=== PATIENT | male | born 1950 | race Caucasian/White ===

== ENCOUNTER → 2018-05-24 09:39 | Outpatient (CLI) | payer MEDICARE, SELFPAY ==
[2018-05-24 11:00] LABS: BUN Creatinine Ratio 21.1 (6-22); Blood Urea Nitrogen 19 mg/dL (9-20); Calcium 9.4 mg/dL (8.4-10.2); Carbon Dioxide 34 mmol/L (22-32); Chloride 102 mmol/L (98-107); Cholesterol 173 mg/dL (140-199); Estimated Glomerular Filt Rate > 60.0 mL/min (>60); Glucose 101 mg/dL (80-110); HDL Cholesterol 49 mg/dL (40-60); HEMOLYSIS < 15 (0-50); LDL Cholesterol Calculated 111 mg/dL (<100); Potassium 4.4 mmol/L (3.4-5.1); Sodium 145 mmol/L (137-145); Triglycerides 64 mg/dL (35-150)
== END ==
PROVIDERS: Visit Provider Physician Assistant
DX: I10 Essential (primary) hypertension (principal)
CPT/HCPCS: 36415; 80048; 80061

== ENCOUNTER → 2018-11-03 09:49 | Outpatient (CLI) | payer MEDICARE, SELFPAY ==
[2018-11-03 11:23] LABS: Vitamin D 25 Hydroxy (D3) 64.4 ng/mL (30.0-100.0)
[2018-11-03 11:36] LABS: Prostate Specific Antigen Scrn 1.53 ng/mL (0.1-4.0)
== END ==
PROVIDERS: PCP Student in an Organized Health Care Education/Training Program; Visit Provider Student in an Organized Health Care Education/Training Program
DX: Z12.5 Encounter for screening for malignant neoplasm of prostate (principal); E55.9 Vitamin D deficiency, unspecified
CPT/HCPCS: 36415; 82306; G0103

== ENCOUNTER 2018-11-24 09:00 | Outpatient (RCR) | payer MEDICARE, SELFPAY ==
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
--- NOTE | 2018-11-03 14:15 | PT.OPPOC ---
Current Diagnoses Unspecified rotator cuff tear or rupture of unspecified shoulder, not specified as traumatic (11/03/18) Provider Visit Care Team Role Provider Type Dewey Padron MD Attending Provider Physician Family Provider Primary Care Provider Specialty: Internal Medicine Address: [address] [place] [address], [id number] Email: Plan Of Care PT-OP-T Assessment and Plan Start: 11/03/18 11:57 Freq: Status: Active Protocol: Document 11/03/18 11:58 EA (Rec: 11/03/18 12:00 EA [id number]) Physical Therapy Assessment Rehab Potential Rehabilitation Potential Good Evaluation Complexity Number of Personal Factors/Comorbidities 1-2 Number of Body Systems Impaired 1-2 Clinical Presentation at Evaluation Stable Impairments Impairments Activity Tolerance Functional Activities Pain Soft Tissue Mobility Strength Goals Four Impairment No HEP in place Social Work Administrator Goal (LTG) Patient will comply and perform HEP and shoulder fitness exercises safe. LTG Duration 5 wks Three Impairment Impaired sleep Jail Goal (LTG) Patient will sleep more than 6 hours without bothering from shoulder pain LTG Duration 4 wks Two Impairment Impaired shoulder strength Social Work Administrator Goal (LTG) Patient increase shoulder ABD/ Flexors, ER by 1/2 grade to improve shoulder functional mobility LTG Duration 4 wks One Impairment quick Dash shoulder functional scale score of 11 Jail Goal (LTG) Patient will have quickDash score of < 10 LTG Duration 4 wks Assessment Summary Assessment Pleasant 68 y/o M patient a referring diagnosis of R RTC tear. Today patient demonstrates shoulder weakness with instability in all shoulder overhead movement. Special tests reveals consistent with MRI results such as positive with Empty Can's, Hawkin's, sensitive with Lift off, speeds, and Clunk tests. OI reveals prominent right clavicle and sup scap angle with no atrophy noted and no substitution noted in all overhead movement . Palpation reveals tender over greater tuberosity but no signs of acute inflammation. Due to above mentioned deficits, patient unable to perform shoulder fitness exercises, end range overhead activities and also patient is deprived with sleeping due to pain. In my professional opinion, patient would greatly benefit with skilled PT to improve his shoulder strength, decrease pain and learn safe fitness exercises. Physical Therapy Plan Frequency and Duration Frequency of Treatment 2x/Week Duration of Treatment 8 wks Therapeutic Interventions Therapeutic Interventions Home Exercise Program Joint Mobilizations Manual Therapy Patient/Caregiver Education Self-Care/Home Management Therapeutic Exercises Modalities Cold Pack/Ice Massage Electric Stimulation Hot Packs Next Visit Focus/Plan Next Note Type Treatment Note Next Visit Plan HEP images, strengthening exercises. Please Sign and Return: I have reviewed this Plan of Care and certify that the skilled therapy services above are required to meet the patient?s needs. Physician Signature Date Printed Name and Credentials Clinical Instructor Signature Printed Name and Credentials
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
== END 2018-11-25 12:10 ==
LOC: PHYS 09:00
PROVIDERS: Family Provider Student in an Organized Health Care Education/Training Program; PCP Student in an Organized Health Care Education/Training Program; Visit Provider Student in an Organized Health Care Education/Training Program
DX: M75.100 Unspecified rotator cuff tear or rupture of unspecified shoulder, not specified as traumatic (principal)
CPT/HCPCS: 97110; 97161; 97535

== ENCOUNTER 2019-02-06 08:56 | Day surgery (SDC) | payer MEDICARE, SELFPAY ==
[2019-02-06] VITALS (7 sets, daily range): BP systolic 115–148; BP diastolic 73–92; PULSE 53–76; RESP 15–22; TEMP 36.4–37.3; O2SAT 16–99; BMI 28.1
[2019-02-06] MEDS: SODIUM CHLORIDE 0.9% 1,000 ML 200 ML IV (09:31)
--- NOTE | 2019-02-06 10:52 | PM.HP.1 ---
History of Present Illness Date Patient Seen: 02/06/19 Time Patient Seen: 10:52 Chief complaint: [id number] SCREENING COLONOSCOPY Narrative: 68yo M for low risk screening colonoscopy. Last scope was 7 years ago with no abnormal findings but poor prep so recommended sooner follow up. No family history, no alarm symptoms. Patient History Medical History Cataracts, bilateral (Chronic) GERD (gastroesophageal reflux disease) (Chronic ~1997) Hearing loss (Chronic) Hypertension (Chronic ~2017) Restless leg syndrome (Chronic) Skin cancer (Chronic ~2016) Torn rotator cuff (Chronic ~2017) Vertigo (Resolved) Surgical History Anesthesia (Resolved) History of knee surgery (Resolved ~1977) Family History (Updated 09/26/18 @ 20:37 by Christine Gutierrez) Father Lung cancer Mother No problems noted. Social History household members: spouse Smoking Status: Never smoker Family & Social History Family History Father Lung cancer Mother No problems noted. Social History: household members spouse Tobacco & Substance use: Smoking Status Never smoker Meds Home Medications Medication Instructions Recorded Confirmed Type GNC 50+ multivitamins PO 05/23/18 09/29/18 History glucosamine sulfate PO 05/23/18 09/29/18 History omeprazole magnesium PO 05/23/18 09/29/18 History saw palmetto PO 05/23/18 09/29/18 History aspirin 81 mg chewable tablet 81 mg PO DAILY 09/29/18 History lisinopril 20 mg tablet 20 mg PO DAILY #90 tab 09/29/18 Rx omeprazole magnesium 20 mg 20 mg PO DAILY #90 cap 11/10/18 Rx capsule,delayed release Allergies Allergy/AdvReac Type Severity Reaction Status Date / Time No Known Drug Allergies Allergy Verified 09/29/18 16:27 Review of Systems Constitutional Constitutional: Reports as per HPI Exam Vital Signs (past 8 hours): - 02/06/19 09:25 Temperature 99.2 F Pulse Rate 76 Respiratory Rate 16 Blood Pressure 148/92 H Pulse Oximetry 16 L Oxygen Delivery Method Room Air Narrative Exam Narrative: AAO, NAD, overweight male EOMI, MMM, no scleral icterus unlabored RA soft, nt/nd MAEW visible skin dry and intact Assessment & Plan (1) Screening for colorectal cancer: Current visit: Yes Status: Acute Assessment & Plan narrative: - low risk screening colonoscopy --> all R/B/A discussed and pt wishes to proceed
[2019-02-06] MEDS: fentaNYL 250 MCG/5 ML INJ IV (12:02)
[2019-02-06] MEDS: MIDAZOLAM 5 MG/5 ML VIAL IV (12:02)
--- NOTE | 2019-02-06 12:07 | PM.OP.ENDO ---
Operative Date/Time/Diagnoses Date of procedure: 02/06/19 Time of procedure: 12:07 Pre-op diagnosis: Need for screening colonoscopy Post-op diagnosis: same Procedure & Clinicians Study performed: Low risk screening colonoscopy Same procedure as scheduled: Yes Indications: 68yo M for low risk screening, no family history not current symptoms. Surgeon: Karla Pepe Procedure Notes SCOAP/Timeout: 1148 Procedure in detail: After obtaining informed consent, the patient was brought to the GI suite and placed in the left lateral decubitus position on the examination table. After placement of appropriate monitors, the patient was given incremental doses of Versed and Fentanyl until an appropriate level of sedation was achieved. A time out was held per SCOAP protocol. A digital rectal examination was performed and did not reveal any masses or obstructing lesions . The colonoscope was gently passed into the patient's anus and the entire colon navigated to the level of the cecum with minimal difficulty. Prep was adequate. Once in the cecum, the scope was slowly withdrawn being sure to go before and beyond all mucosal folds and prominences as able to get a thorough examination. No masses or polyps are noted. Other findings include a few scattered diverticula. At the level of the rectal vault, the scope was retroflexed and the internal anal canal was examined. The scope was straightened and air aspirated from the colon. The instrument was removed from the patient's body and the procedure was concluded. The patient was allowed to awaken from sedation without difficulty and taken to the post-anesthesia care unit in good condition. Scope withdrawal time: 8 min Sedation minutes: 16 Findings: diverticulosis (few, small, scattered in sigmoid) Specimen(s): none sent Complications: none Recommendations: Colonscopy in 10 years and High fiber diet Follow up: as needed Disposition: PACU
--- NOTE | 2019-02-06 12:21 | SUR.PHASEI ---
1211 to pacu drowsy, eyes open, responds readily to voice. Passing flatus easily. Denies pain/nausea.
--- NOTE | 2019-02-06 12:35 | SUR.PHASEI ---
vSS, denies any discomfort, belly soft. Ready to transfer to [facility].
== END 2019-02-06 13:05 | disposition home or self-care (01) ==
PROVIDERS: Family Provider Student in an Organized Health Care Education/Training Program; PCP Student in an Organized Health Care Education/Training Program; Visit Provider Surgery
PROC: 0DJD8ZZ Inspection of Lower Intestinal Tract, Via Natural or Artificial Opening Endoscopic (ICD-10-PCS; CPT 45378; principal; 2019-02-06 10:45)
DX: Z12.11 Encounter for screening for malignant neoplasm of colon (principal); I10 Essential (primary) hypertension; K57.30 Diverticulosis of large intestine without perforation or abscess without bleeding; K64.4 Residual hemorrhoidal skin tags
CPT/HCPCS: G0121; 99152; J2250; J3010

== ENCOUNTER → 2019-11-01 10:30 | Outpatient (CLI) | payer MEDICARE, SELFPAY ==
[2019-11-01 12:22] LABS: Blood Urea Nitrogen 23 mg/dL (9-20); Carbon Dioxide 32 mmol/L (22-32); Chloride 101 mmol/L (98-107); Estimated Glomerular Filt Rate > 60.0 mL/min (>60); Glucose 115 mg/dL (80-110); HEMOLYSIS < 15 (0-50); Potassium 4.6 mmol/L (3.4-5.1); Sodium 139 mmol/L (137-145)
== END ==
PROVIDERS: Family Provider Student in an Organized Health Care Education/Training Program; PCP Student in an Organized Health Care Education/Training Program; Referring Provider Student in an Organized Health Care Education/Training Program; Visit Provider Student in an Organized Health Care Education/Training Program
DX: I10 Essential (primary) hypertension (principal)
CPT/HCPCS: 36415; 80048

== ENCOUNTER → 2019-12-05 11:04 | Outpatient (CLI) | payer MEDICARE, SELFPAY ==
--- NOTE | 2019-12-05 11:07 | DI.US.S_ITS ---
PROCEDURE: US RENAL COMPLETE INDICATIONS: NOCTURIA, FAILED OUTPATIENT THERAPY TECHNIQUE: Real-time scanning was performed of the kidneys and bladder, with image documentation. COMPARISON: None. FINDINGS: Kidneys: Kidneys are normal in size. Right kidney measures 11.7 cm long; left kidney measures 11.2 cm long. Right renal cortical thickness is 1.6 cm; left renal cortical thickness is 1.4 cm. Renal cortical echotexture is normal. No hydronephrosis or nephrolithiasis. No suspicious solid mass lesions. Bladder: Pre-void bladder volume is 325 mL. Post-void residual is 112 mL. Pre-void images demonstrate no intraluminal masses or stones. On pre-void images, both the right and left ureteral jets are noted with color Doppler interrogation. (Of note, ureteral jets may not be detectable in up to 25% of cases due to insufficient differences in specific gravity between ureteral and bladder urine). Miscellaneous: No free pelvic fluid. IMPRESSION: 1. Kidneys are sonographically normal. 2. No urinary bladder sonographic abnormality identified. Dictated by: Tete Monge MD, PhD on 12/05/2019 at 12:25 Approved by: Tete Monge MD, PhD on 12/05/2019 at 12:26
== END ==
PROVIDERS: Family Provider Student in an Organized Health Care Education/Training Program; PCP Student in an Organized Health Care Education/Training Program; Referring Provider Student in an Organized Health Care Education/Training Program; Visit Provider Student in an Organized Health Care Education/Training Program
DX: R35.1 Nocturia (principal)
CPT/HCPCS: 76770

== ENCOUNTER → 2020-07-03 11:18 | Outpatient (CLI) | payer MEDICARE, SELFPAY ==
[2020-07-03 13:09] LABS: COVID19 -Nasal RAPID Negative (Negative)
== END ==
PROVIDERS: Family Provider Student in an Organized Health Care Education/Training Program; PCP Student in an Organized Health Care Education/Training Program; Visit Provider Physician Assistant
DX: Z11.59 Encounter for screening for other viral diseases (principal)
CPT/HCPCS: 87635

== ENCOUNTER → 2020-07-05 08:14 | Outpatient (CLI) | payer MEDICARE, SELFPAY ==
--- NOTE | 2020-07-05 09:15 | PM.TREADMILL ---
Cardiac Stress Test Report Referral & Results Date Patient Seen: 07/05/20 Time Patient Seen: 09:00 Requesting provider: Dewey Padron Indication: Atypical angina Rest ECG: NSR Procedure Note: Today following both written and verbal informed consent, the patient was exercised according to a standard Ernst protocol. The patient exercised for a total of 10 minutes 15 seconds achieving a maximum heart rate of 174. Patient's maximum systolic blood pressure was 218. This was an estimated 12.8 METs. (maximum diastolic blood pressure is 110) Normal hemodynamic response to exercise. No EKG changes. Presenting symptom of retrosternal chest pain occurred with moderate exercise, but was not associated with changes in EKG. No other signs or symptoms of angina. Excellent exercise capacity (FAM less than -20% on active scale). Impression: Low probability for ischemia. Nava treadmill score of 10 is associated with 97% 5 year survival rate from cardiac causes of mortality. Please note: Actual ECG tracings can be found in the PACS system.
== END ==
PROVIDERS: Family Provider Student in an Organized Health Care Education/Training Program; PCP Student in an Organized Health Care Education/Training Program; Referring Provider Student in an Organized Health Care Education/Training Program; Visit Provider Student in an Organized Health Care Education/Training Program
DX: I20.8 Other forms of angina pectoris (principal)
CPT/HCPCS: 93016; 93017; 93018

== ENCOUNTER → 2021-10-16 10:18 | Outpatient (CLI) | payer MEDICARE, SELFPAY ==
[2021-10-16 11:37] LABS: BUN Creatinine Ratio 23.7 (6-22); Blood Urea Nitrogen 23 mg/dL (9-20); Carbon Dioxide 30 mmol/L (22-32); Chloride 102 mmol/L (98-107); Cholesterol 186 mg/dL (140-199); Estimated Glomerular Filt Rate > 60.0 mL/min (>60); Glucose 104 mg/dL (80-110); HDL Cholesterol 53 mg/dL (40-60); HEMOLYSIS < 15 (0-50); LDL Cholesterol Calculated 117 mg/dL (<100); Potassium 4.6 mmol/L (3.4-5.1); Sodium 137 mmol/L (137-145); Triglycerides 80 mg/dL (35-150)
[2021-10-16 12:00] LABS: Prostate Specific Antigen Scrn 1.79 ng/mL (0.1-4.0)
== END ==
PROVIDERS: Family Provider Student in an Organized Health Care Education/Training Program; PCP Student in an Organized Health Care Education/Training Program; Referring Provider Urology; Visit Provider Urology
DX: I10 Essential (primary) hypertension (principal); Z12.5 Encounter for screening for malignant neoplasm of prostate; Z13.220 Encounter for screening for lipoid disorders
CPT/HCPCS: 36415; 80048; 80061; G0103

== ENCOUNTER → 2022-09-29 14:30 | Outpatient (CLI) | payer MEDICARE, SELFPAY ==
[2022-09-29 15:12] LABS: Add Manual Diff / Slide Review NO; Basophils Absolute Auto 100 /uL (0-100); Basophils Percent Auto 0.6 % (0-2); Eosinophils Absolute Auto 100 /uL (0-450); Eosinophils Percent Auto 1.1 % (2-4); Hematocrit 42.7 % (41-53); Hemoglobin 14.9 g/dL (13.5-17.5); Lymphocytes Absolute Auto 1700 /uL (1100-4500); Lymphocytes Percent Auto 20.1 % (25-40); Mean Corpuscular HGB Conc 34.8 % (30-36); Mean Corpuscular Hemoglobin 30.1 PG (26-34); Mean Corpuscular Volume 86.5 fL (80-100); Monocytes Absolute Auto 600 /uL (0-900); Monocytes Percent Auto 6.7 % (3-14); Neutrophils Absolute Auto 6000 /uL (1500-7000); Neutrophils Percent Auto 71.5 % (50-75); Platelet Count 252 X10^3/uL (150-400); Red Blood Cell Count 4.93 X10^6/uL (4.5-5.9); Red Cell Distribution Width 13.5 % (11.6-14.8); White Blood Cell Count 8.4 X10^3/uL (4.5-11.0)
[2022-09-29 15:41] LABS: Alanine Aminotransferase 30 IU/L (<50); Albumin 4.4 g/dL (3.5-5.0); Albumin Globulin Ratio 1.5 (1.0-2.8); Alkaline Phosphatase 58 U/L (38-126); Aspartate Aminotransferase 30 IU/L (17-59); BUN Creatinine Ratio 17.3 (6-22); Bilirubin Total 0.6 mg/dL (0.2-1.3); Blood Urea Nitrogen 19 mg/dL (9-20); Calcium 9.4 mg/dL (8.4-10.2); Carbon Dioxide 29 mmol/L (22-32); Chloride 100 mmol/L (98-107); Estimated Glomerular Filt Rate > 60 mL/min (>60); Globulin 2.9 g/dL (1.7-4.1); Glucose 102 mg/dL (80-110); HEMOLYSIS < 15 (0-50); Potassium 4.3 mmol/L (3.4-5.1); Sodium 138 mmol/L (137-145); Total Protein 7.3 g/dL (6.3-8.2)
[2022-09-29 16:12] LABS: TSH w/ Reflex to FT4 1.26 uIU/mL (0.47-4.68)
[2022-09-29 16:33] LABS: Vitamin B12 818 pg/mL (239-931)
== END ==
PROVIDERS: Family Provider Student in an Organized Health Care Education/Training Program; PCP Student in an Organized Health Care Education/Training Program; Referring Provider Student in an Organized Health Care Education/Training Program; Visit Provider Student in an Organized Health Care Education/Training Program
DX: R53.83 Other fatigue (principal); R68.89 Other general symptoms and signs
CPT/HCPCS: 36415; 80053; 82607; 84443; 85025

== ENCOUNTER → 2022-11-10 10:43 | Outpatient (CLI) | payer MEDICARE, SELFPAY ==
--- NOTE | 2022-11-10 10:46 | DI.RAD.S_ITS ---
PROCEDURE: XR KNEE RT 3V INDICATIONS: Chronic right knee pain TECHNIQUE: 3 views of the knee were acquired. COMPARISON: None. FINDINGS: Bones: No fractures or dislocations. No suspicious bony lesions. Tricompartmental joint space narrowing with associated osteophytosis. Slight bony deformity of the medial tibial plateau. Soft tissues: No joint effusion. No suspicious soft tissue calcifications. IMPRESSION: Moderate to severe tricompartmental osteoarthritis. Dictated by: Segundo Fraser M.D. on 11/10/2022 at 11:12 Approved by: Segundo Fraser M.D. on 11/10/2022 at 11:13
== END ==
PROVIDERS: Family Provider Student in an Organized Health Care Education/Training Program; PCP Student in an Organized Health Care Education/Training Program; Referring Provider Student in an Organized Health Care Education/Training Program; Visit Provider Student in an Organized Health Care Education/Training Program
DX: M25.561 Pain in right knee (principal); M17.11 Unilateral primary osteoarthritis, right knee
CPT/HCPCS: 73562

== ENCOUNTER → 2023-08-24 13:00 | Outpatient (CLI) | payer MEDICARE, SELFPAY ==
[2023-08-24 15:07] LABS: Prostate Specific Antigen Scrn 2.45 ng/mL (0.1-4.0)
== END ==
LOC: LAB 13:02
PROVIDERS: Family Provider Student in an Organized Health Care Education/Training Program; PCP Family Medicine; Referring Provider Urology; Visit Provider Urology
DX: Z12.5 Encounter for screening for malignant neoplasm of prostate (principal)
CPT/HCPCS: 36415; G0103

== ENCOUNTER → 2023-12-03 08:09 | Outpatient (CLI) | payer MEDICARE, SELFPAY ==
[2023-12-03 08:43] LABS: Add Manual Diff / Slide Review NO; Basophils Absolute Auto 100 /uL (0-100); Basophils Percent Auto 0.7 % (0-2); Eosinophils Absolute Auto 200 /uL (0-450); Eosinophils Percent Auto 2.8 % (2-4); Hematocrit 43.3 % (41-53); Hemoglobin 14.8 g/dL (13.5-17.5); Lymphocytes Absolute Auto 2400 /uL (1100-4500); Lymphocytes Percent Auto 32.6 % (25-40); Mean Corpuscular HGB Conc 34.2 % (30-36); Mean Corpuscular Hemoglobin 29.9 PG (26-34); Mean Corpuscular Volume 87.3 fL (80-100); Monocytes Absolute Auto 500 /uL (0-900); Neutrophils Absolute Auto 4300 /uL (1500-7000); Neutrophils Percent Auto 56.9 % (50-75); Platelet Count 223 X10^3/uL (150-400); Red Blood Cell Count 4.96 X10^6/uL (4.5-5.9); Red Cell Distribution Width 13.1 % (11.6-14.8); White Blood Cell Count 7.5 X10^3/uL (4.5-11.0)
[2023-12-03 09:00] LABS: Alanine Aminotransferase 37 IU/L (<50); Albumin 4.6 g/dL (3.5-5.0); Albumin Globulin Ratio 1.6 (1.0-2.8); Alkaline Phosphatase 53 U/L (38-126); Aspartate Aminotransferase 39 IU/L (17-59); BUN Creatinine Ratio 32.2 (6-22); Bilirubin Total 0.8 mg/dL (0.2-1.3); Blood Urea Nitrogen 28 mg/dL (9-20); Calcium 9.6 mg/dL (8.4-10.2); Carbon Dioxide 31 mmol/L (22-32); Chloride 105 mmol/L (98-107); Cholesterol 126 mg/dL (140-199); Estimated Glomerular Filt Rate > 60 mL/min (>60); Globulin 2.9 g/dL (1.7-4.1); Glucose 87 mg/dL (80-110); HDL Cholesterol 60 mg/dL (40-60); HEMOLYSIS < 15 (0-50); LDL Cholesterol Calculated 54 mg/dL (<100); Potassium 4.6 mmol/L (3.4-5.1); Sodium 138 mmol/L (137-145); Total Protein 7.5 g/dL (6.3-8.2); Triglycerides 59 mg/dL (35-150)
[2023-12-03 09:26] LABS: TSH w/ Reflex to FT4 0.51 uIU/mL (0.47-4.68)
[2023-12-03 09:28] LABS: Prostate Specific Antigen 2.23 ng/mL (0.10-4.00)
[2023-12-03 09:32] LABS: Testosterone 450 ng/dL (71.8-623)
[2023-12-03 09:49] LABS: Vitamin B12 780 pg/mL (239-931)
== END ==
PROVIDERS: Family Provider Student in an Organized Health Care Education/Training Program; PCP Family Medicine; Referring Provider Urology; Visit Provider Urology
DX: R97.20 Elevated prostate specific antigen [PSA] (principal); I10 Essential (primary) hypertension; E78.5 Hyperlipidemia, unspecified; R53.82 Chronic fatigue, unspecified
CPT/HCPCS: 36415; 80053; 80061; 82607; 84153; 84403; 84443; 85025